=== PATIENT | male | born 1950 | race Caucasian/White ===

== ENCOUNTER 2016-03-01 10:04 | Emergency (ER) | payer OTHER ==
[2016-03-01 10:50] VITALS: BP 125/76; PULSE 66; RESP 18; TEMP 97.9; O2SAT 97
--- NOTE | 2016-03-01 11:24 | UCPHY ---
[id number], BODY ACHES, CHILLS HPI/ROS: CHIEF COMPLAINT:cough, congestion HISTORY OF PRESENT ILLNESS: This is a 65 year old male with nine days of nasal/ sinus congestion, cough (nonproductive), fatigue, occasional chills. He feels fatigued. He has had a mild frontal headache. He has tried Sudafed. He denies fever, sore throat, chest pain, trouble breathing, abdominal pain, nausea/ vomiting. He had some mild diarrhea. He has had a flu vaccination. REVIEW OF SYSTEMS: A ten point review of systems was performed and is negative with the exception of the items mentioned in the HPI. Source: Patient Exam Limitations: No limitations - Medical/Surgical History Other PMH: HTN, HYPOTHYROIDISM - Family History Significant Family History: No pertinent family hx - Social History Smoking Status: Never smoked Alcohol Use: Occasionally Additional Social History: He is . He lives in [place]. - Physical Exam Exam: General Appearance: Alert. Vital signs reviewed. Eyes: Pupils equal and round, no conjunctival injection, no discharge. Anicteric. ENT, Mouth: Mucous membranes are moist, no oropharyngeal erythema or edema. Neck: No lymphadenopathy, supple. Respiratory: Lungs are clear to auscultation; no wheezes, rales, or rhonchi. Cardiovascular: Regular rate and rhythm; no murmur, rub, or gallop. Gastrointestinal: Abdomen is soft and nontender, no masses or organomegaly, bowel sounds normal. Skin: Warm and dry, no rashes on exposed skin, normal color. Back: Nontender to palpation over the thoracolumbar spine. No CVAT. Extremities: No lower extremity edema, no calf tenderness or swelling. Neurological: Alert and oriented. Moving all four extremities easily and equally. Psychiatric: Normal affect. Constitutional: Initial Vital Signs Temperature (C) 36.6 C 03/01/16 10:35 Heart Rate 66 03/01/16 10:35 Respiratory Rate 18 03/01/16 10:35 Blood Pressure 125/76 H 03/01/16 10:35 O2 Sat (%) 97 03/01/16 10:35 O2 Delivery Mode Room Air Allergies/Adverse Reactions: No Known Allergies Allergy (Unverified 03/01/16 10:25) Home Medications: Medication Instructions Recorded Amoxicillin/Clavulanate Pot 875 mg PO BID #14 tab 03/01/16 [Augmentin 875 MG TAB (*)] Candesartan-Hctz 16-12.5 mg Tb 03/01/16 Synthroid 03/01/16 Medical Decision Making ED Course/Re-evaluation: Signs/symptoms of URI, likely viral. He is concerned about sinus infection. He is afebrile, has no sinus tenderness, no post nasal drip. We discussed symptomatic treatments. He does not live in [place] and I am providing RX for antibiotics, should his illness progress. We discussed the danger signs that should prompt him to seek immediate medical attention. Differential Diagnosis: DDX includes but is not limited to viral URI, sinusitis, bronchitis, influenza, pneumonia. Departure - Departure Disposition: Home, Routine, Self-Care Clinical Impression: Upper respiratory infection Condition: Good Instructions: Viral Syndrome (ED), Upper Respiratory Infection (ED) Additional Instructions: As we discussed, this is likely a viral illness. I recommend that you continue with [id number] medications for symptom control. If you develop headache, sinus drainage (in the back of your throat or copious purulent nasal discharge), pain in your cheeks, fever--these might be signs of a sinus infection. If that occurs I would recommend an antibiotic. You will have a prescription that you could fill in that case. Referrals: [place],. [Primary Care Provider] - As per Instructions Prescriptions: Amoxicillin/Clavulanate Pot [Augmentin 875 MG TAB (*)] 875 mg PO BID #14 tab - PQRS PQRS Measurement: 134: Depression screening and followup, PRIME MD-PHQ2 (12 years and older) Over the last 2 weeks, how often have you been bothered by any of the following problems? 1. Feeling down, depressed, or hopeless? 2. Little interest or pleasure in doing things? Patient answered no to both 1 and 2 130: Documentation of medications. Reviewed all patient medications, doses, route and frequency. 226: Do you smoke? No. 47: 65 and older: Advanced care planning. Patient designates surrogate decision maker as spouse. 51: 18 years old and older with diagnosis of COPD, spirometry performance. Patient has no history of COPD 52: 18 years old and older with COPD and symptoms of COPD or FEV1<60% predicted prescribed a B Agonist. Not applicable.
== END 2016-03-01 12:13 | disposition home or self-care (01) ==
LOC: CED 10:04
DX: B34.9 Viral infection, unspecified (principal); J06.9 Acute upper respiratory infection, unspecified
CPT/HCPCS: 99214-PO; G0463-PO